=== PATIENT | male | born 1975 | race Caucasian/White ===

== ENCOUNTER 2016-09-25 06:50 | Inpatient (IN) ==
--- NOTE | 2016-09-24 20:04 | Discharge Summary ---
<Ilsa Whaley - Last Filed: 09/25/16 09:28> Date of Encounter: 09/25/16 - Discharge Diagnosis (1) Loosening of knee joint prosthesis Priority: Primary Status: Acute Qualifiers: Encounter type: subsequent encounter Qualified Code(s): T84.038D - Mechanical loosening of other internal prosthetic joint, subsequent encounter; Z96.659 - Presence of unspecified artificial knee joint (2) Chronic pain Priority: Secondary Status: Chronic Comments: Will continue chronic pain medication. Qualifiers: Chronic pain type: other chronic pain Qualified Code(s): G89.29 - Other chronic pain (3) Obesity Priority: Secondary Status: Chronic Qualifiers: Obesity type: unspecified obesity type Obesity severity: unspecified obesity severity Qualified Code(s): E66.9 - Obesity, unspecified - Discharge Medications Home Medications: Aspirin Enteric Coated [Aspirin EC] 325 mg PO DAILY #21 tablet. 09/24/16 [Rx] Acetaminophen [Tylenol] 650 mg PO Q6HR 09/25/16 [History] Ibuprofen [Motrin] 600 mg PO Q8H #30 tablet 09/25/16 [Rx] Oxymorphone HCl [Oxymorphone HCl ER] 10 mg PO BID 09/25/16 [History] Allergies/Adverse Reactions: Allergies clarithromycin [From Biaxin] Adverse Reaction (Verified 09/25/16 07:07) Vomiting nabumetone Adverse Reaction (Verified 09/25/16 07:07) Vomiting naproxen Adverse Reaction (Verified 09/25/16 07:07) Vomiting Primary care physician: Radha Blank - Patient Status Disposition: Home, Self-Care Condition: Good - Discharge Instructions Follow Up With: Ilsa Wise DO [Primary Care Provider] - - Hospital Course Hospital course: Mr. Castaneda is a 41 year old male - Time Spent with Patient Total time spent providing and/or coordinating discharge services: <Darien Mcwilliams - Last Filed: 09/26/16 06:28> Date of Encounter: 09/26/16 Time of Encounter: 06:28 - Discharge Diagnosis (1) Loosening of knee joint prosthesis Priority: Primary Status: Acute Qualifiers: Encounter type: subsequent encounter Qualified Code(s): T84.038D - Mechanical loosening of other internal prosthetic joint, subsequent encounter; Z96.659 - Presence of unspecified artificial knee joint (2) Chronic pain Priority: Secondary Status: Chronic Qualifiers: Chronic pain type: other chronic pain Qualified Code(s): G89.29 - Other chronic pain (3) Obesity Priority: Secondary Status: Chronic Qualifiers: Obesity type: unspecified obesity type Obesity severity: unspecified obesity severity Qualified Code(s): E66.9 - Obesity, unspecified Primary care physician: Radha Blank - Patient Status Functional capacity at discharge: uses cane/walker Overall status at discharge: patient is progressing back to baseline - Hospital Course Hospital course: Mr. Castaneda is a 41 year old male The patient had an uneventful postoperative course. They received antibiotics and physical therapy and were discharged in stable condition. There will follow -up in the office in 2 weeks. Aspirin DVT prophylaxis - Time Spent with Patient Total time spent providing and/or coordinating discharge services:
--- NOTE | 2016-09-25 06:43 | History & Physical Report ---
Date of Encounter: 09/25/16 Time of Encounter: 06:43 24 Hour HP Update - Instructions Instructions: If the History and Physical is less than 30 days old and was completed prior to A.M. admission and or procedure and has NOT been updated on calendar day of procedure please complete this update prior to performing procedure. - Update Patient reports changes in Medical Condition: No Changes in examination, assessment, or condition: No Changes in Medication: No Preop tests/diagnostics Reviewed: Yes Surgery Remains Indicated: Yes Consent for Planned Operative Procedure(s) Verified: Yes - Pre-Operative Checklist Preoperative Checklist Indicated: No Prophylactic Antibiotic Ordered: Yes Is VTE Prophylaxis Indicated?: Yes
[2016-09-25] MEDS ORDERED: CeFAZolin Pre 3,000 MG/100 ML 3,000 MG/100 ML BAG IVPB ONE (07:08)
[2016-09-25] MEDS ORDERED: Ringers Solution, Lactated 1,000 ML IVC SCH (07:15)
[2016-09-25] MEDS ORDERED: Gabapentin 300 MG CAPSULE PO ONE (07:22)
[2016-09-25] MEDS ORDERED: Famotidine 20 MG/2 ML VIAL IVP ONE (07:22)
--- NOTE | 2016-09-25 07:25 | Anesthesia Evaluation PreOp ---
Date of Encounter: 09/25/16 Time of Encounter: 07:25 - Past History Planned Operation: Revision Rt TKA Cardiac History: Denies any Significant Hx Pulmonary History: Denies Any Significant HX CLIENT HR MANAGER History: Denies Any Significant HX Other Medical History: Other (Morbid Obesity) Anesthesia History: No Prior Anesthetic Complications, Past Anesthesia (Rt TKA) Alcohol Use: none Drug use: none Medications and Allergies Aspirin Enteric Coated [Aspirin EC] 325 mg PO DAILY #21 tablet. 09/24/16 [Rx] Acetaminophen [Tylenol] 650 mg PO Q6HR 09/25/16 [History] Ibuprofen [Motrin] 200 - 400 mg PO Q6HR 09/25/16 [History] Oxymorphone HCl [Oxymorphone HCl ER] 10 mg PO BID 09/25/16 [History] Allergies clarithromycin [From Biaxin] Adverse Reaction (Verified 09/25/16 07:07) Vomiting nabumetone Adverse Reaction (Verified 09/25/16 07:07) Vomiting naproxen Adverse Reaction (Verified 09/25/16 07:07) Vomiting - Meds/Allergy Pre-op Review Medications Reviewed: Yes Allergies Reviewed: Yes Beta Blockers on Current Med List: No Anesthesia Results - Labs Laboratory Tests 09/13/16 09/13/16 15:35 15:35 Hgb 14.4 Hct 43.6 Plt Count 283 Sodium 144 Potassium 4.7 H BUN 15 Creatinine 1.00 Anesthesia Exam O2 Sat Height 1.75 m Height 1.75 m Weight 134.717 kg Weight 134.717 kg O2 Sat by Pulse Oximetry 98 Vital Signs Temp Pulse Resp BP Pulse Ox 97.7 F 79 18 145/96 98 09/25/16 07:14 09/25/16 07:14 09/25/16 07:14 09/25/16 07:14 09/25/16 07:14 - HEENT Pupil (Motor): Pupils equal Mallampati: III Teeth: Missing, Poor dentition Oral Opening: Less than or equal to 3 - CLIENT HR MANAGER LOC: Oriented CLIENT HR MANAGER Motor: Normal RUE, Normal LUE, Normal RLE, Normal LLE, Normal Face CLIENT HR MANAGER Sensory: Normal: RUE, LUE, RLE, LLE, Face - Cardiac Rhythm: Regular Murmur: None JVD: No Carotid Bruit: No - Pulmonary Breath Sounds: bilateral Clear Respiratory Effort: Symmetrical Anesthesia Assess/Plan ASA Score: 3 (MO) Modified Dallas Scale for Level of Consciousness: Cooperative, oriented, and tranquil Anesthetic Plan: General Monitoring Plan: Standard Monitors Recovery Plan: PACU (Discussed GA and RA, agrees to proceed)
[2016-09-25] MEDS ORDERED: Tetracaine/PF 20 MG/2 ML AMPUL ONE (07:50)
--- NOTE | 2016-09-25 08:14 | Anesthesia Procedures ---
Date of Encounter: 09/25/16 Time of Encounter: 08:12 Procedures: Anesthesia - Nerve Block Procedure Date: 09/25/16 Time: 08:12 Allergies/Adv Reactions: clarithromycin, nabumetone, naproxen Pre-op Diagnosis: unstable R total knee Surgical Procedure: R TKA, Revision Checklist: Correct Patient Identifier, Correct procedure, History checked Correct side: Right Blood Thinner: No Monitor Applied: EKG, BP, Pulse Oximetry Supplemental Oxygen via Nasal Cannula (L/min): 3 Sedation: Versed (mg): 4 Sedation: Fentanyl (mcg): 50 Indication: Post Op Analgesia (requested by Dr. Mcwilliams) Pre-op Neuro Deficits: Yes Block Type: Femoral, Other (iPACK) Catheter placed: No Sterile Technique: Yes Ultrasound used: Yes Anatomy identified: Yes Visual spread of Local: Yes Neuro Stimulation: Yes Nerve Stimulator Range: 0.2 - 0.4 mA Blood on Needle Aspiration: No Smooth Injection of Local: Yes Pain with Injection of Local: No Prep: Chlorhexadine Needle: 22 x 50 mm Stimuplex (femoral n. block), 21 x 100 mm Stimuplex (iPACK block) Local: 0.25% Bupivicaine w/Clonidine 20 mcg/cc (20mL for iPACK), Tetracaine ( 2mL 1% for femoral n. block), Other (0.5% bupivicaine, 30mL for femoral n. block ) Number of Attempts: 1 Complications: None/effective block Vitals: 3 Vital Signs Time pre-procedure post-procedure BP 128/86 126/97 Pulse 80 85 Resp 16 18 O2 Sat 99 99
[2016-09-25] MEDS ORDERED: *HR* Promethazine 25 MG/ML VIAL IVP PRN (08:16)
[2016-09-25] MEDS ORDERED: Ondansetron 4 MG/2 ML VIAL IVP PRN ×2 (08:16→11:59)
[2016-09-25] MEDS ORDERED: *HR* Succinylcholine 200 MG/10 ML VIAL IVP ONE (09:20)
[2016-09-25] MEDS ORDERED: *HR* Midazolam HCl 2 MG/2 ML VIAL ONE ×2 (09:20→11:29)
[2016-09-25] MEDS ORDERED: *HR* Propofol 200 MG/20 ML VIAL IVP ONE ×2 (09:20)
[2016-09-25] MEDS ORDERED: *HR* FentaNYL (PF) 100 MCG/2 ML VIAL ONE (09:20)
[2016-09-25] MEDS ORDERED: Lidocaine -MPF 2% 2 ML VIAL ONE (09:20)
[2016-09-25] MEDS ORDERED: Lidocaine -MPF 4% 5 ML AMPUL ONE ×2 (09:20→11:30)
[2016-09-25] MEDS ORDERED: Ondansetron 4 MG/2 ML VIAL ONE (09:21)
[2016-09-25] MEDS ORDERED: Dexamethasone 4 MG/ML VIAL ONE (09:21)
--- NOTE | 2016-09-25 10:08 | Orthopedic Operative Note ---
Date of procedure: 09/25/16 Pre-op diagnosis: Aseptic loosening unstable right total knee Post-op diagnosis: same Procedure: Procedure: Right revision total knee Estimated blood loss: 400 mL Hardware: Metal and polyethylene replacement. Biomet SS K 65 left femur 14 x 120 stem, 5 mm distal medial 75 stem tibia, 14 x 80 stem. 18 constrained Melida, Exam Under anesthesia: Full extension and flexion to 90 degrees significant varus valgus instability Procedural Notes: Unstable total knee, aseptic loosening tibia. Operative procedure: The patient was brought to the operating room and placed on the operating room table. After general anesthesia was administered the operative knee was examined. Findings were noted in the exam under anesthesia. The operative extremity was prepped and draped in sterile surgical fashion. The patient received IV antibiotics prior to skin incision. A standard midline incision was made centered over the patella through the old incision. The incision was made through the skin and subcutaneous tissue. A medial parapatellar tendon approach was performed. Care was taken to preserve tissue along the medial aspect of the patella. And to protect the patella tendon. The deep MCL was released off the medial tibia. The infra patella fat pad was excised. Fluid was encountered this was normal joint fluid, Cultures were obtained and gram . The knee was brought into flexion the poly-was removed. The interface between the patient's femoral component and distal femur were disrupted with a osteotome and oscillating saw. Femoral component was removed removed without significant bone loss. Attention was then turned to the tibial component. The same technique was used to remove the tibial component by disrupting the interface between the patient's tibial component and the patients proximal tibia. The tibial component was loose, was removed without significant bone loss. The tibia was sized to a 75 it was reamed up to a 20y140. Trial had good fit and fixation. The femur was sized to a 65, was reamed up to a 14 x 120. The finishing guide was seated and the box cut was made. The trial had good fit and fixation with a 5 mm distal medial augment. Both trial components were seated and the 14 constrained Melida was seated and secured. The knee had full flexion and full extension with no instability. The trial components were removed. The knee sat for 2 minutes with a Betadine saline solution. It was irrigated out with 2 L of pulse irrigation. The components were assembled on the back table, the tibia cemented first followed by the femur. The 18 constrained liner was seated and secure. The knee was brought to full extension while the cement hardened. After the cement hardened the knee was irrigated out again. The extensor mechanism was closed with a running #2 Fiberwire suture and a running #2 PDS suture. The deep tissue was irrigated and closed deep with #1 PDS suture superficially with 0 PDS suture. The skin was closed with skin nona. The patient was placed in a sterile dressing and postoperative brace. They were extubated and transferred to recovery room in stable condition. Anesthesia: GETA Surgeon: Darien Mcwilliams Condition: stable Disposition: PACU
[2016-09-25] MEDS ORDERED: *HR* Morphine 10 MG/ML VIAL ONE (10:21)
[2016-09-25] MEDS: *HR* HYDROmorphone (PF) 1 MG/ML SYRINGE IVP PRN ×8 (10:45→11:30)
[2016-09-25 11:05] LABS: Hematocrit 43.3 % (37.5-50.1); Hemoglobin 14.1 g/dL (12.9-16.9)
[2016-09-25] MEDS ORDERED: *HR* Midazolam HCl 2 MG/2 ML VIAL IVP ONE (11:28)
[2016-09-25] MEDS ORDERED: Temazepam 15 MG CAPSULE PO PRN (11:59)
[2016-09-25] MEDS ORDERED: Sennosides 8.6 MG TABLET PO PRN (11:59)
[2016-09-25] MEDS ORDERED: *HR* OxyCODONE Immed Rel 5 MG TABLET PO PRN (11:59)
[2016-09-25] MEDS ORDERED: Naloxone 0.4 MG/ML INJ IVP PRN (11:59)
[2016-09-25] MEDS ORDERED: MOM Conc 10 ML UD.LIQ PO PRN (11:59)
[2016-09-25] MEDS: Ringers Solution, Lactated 1,000 ML IVC SCH ×2 (12:00→21:38)
--- NOTE | 2016-09-25 12:05 | Anesthesia Evaluation Post Op ---
Date of Encounter: 09/25/16 Time of Encounter: 11:50 - Vital Signs Vital Signs: Vital Signs/O2 Sat/Glucose, Most Current Temp Pulse Resp BP Pulse Ox 09/25/16 11:40 97.7 F 72 18 113/82 94 09/25/16 11:30 73 18 103/83 94 09/25/16 11:20 75 18 124/90 95 09/25/16 11:10 98 F 79 18 120/90 98 09/25/16 11:00 78 18 135/95 95 09/25/16 10:50 81 20 128/90 96 09/25/16 10:40 97.3 F L 88 20 116/83 99 09/25/16 08:42 80 16 129/89 100 09/25/16 08:29 75 16 117/92 100 09/25/16 08:22 77 16 119/91 100 09/25/16 08:06 91 16 126/97 100 - Lungs Lungs: Clear Ascult./Percussion - Airway Airway: Non-obstructed - Cardiovascular Regular Rate - Mental Status Mental Status: Alert & Oriented, Answers Appropriately - Pain Pain Scale: 4 - Nausea Vomiting Nausea Vomiting: Not Present - Hydration Hydration: Ice chips - Discharge PostOp Status: Transfer Patient to floor
--- NOTE | 2016-09-25 12:08 | Anesthesia Progress Note ---
Date of Encounter: 09/25/16 Time of Encounter: 11:40 Anesthesia Note - Note Note: 09/25/16 12:06 Performed Rescue Femoral Block inPACU. Under US 20cc 0.25% Bupivacaine and 2% Lido Injected to next to Femoral Nerve Patient tolerated procedure well
[2016-09-25] MEDS: *HR* OxyCODONE Immed Rel 5 MG TABLET PO PRN ×3 (14:21→22:41)
[2016-09-25] MEDS: ceFAZolin 3,000 MG in D5% in Water 100 ML IVPB SCH (17:42)
[2016-09-25] MEDS: *HR* Enoxaparin 30 MG/0.3 ML SYRINGE SQ SCH (17:44)
[2016-09-25] MEDS ORDERED: *HR* Enoxaparin 30 MG/0.3 ML SYRINGE SQ SCH (18:00)
[2016-09-25] MEDS: OXYMORPHONE HCL 10 MG PO SCH (21:33)
[2016-09-25] MEDS: Gabapentin 300 MG CAPSULE PO SCH (21:36)
[2016-09-26] MEDS: ceFAZolin 3,000 MG in D5% in Water 100 ML IVPB SCH (01:21)
[2016-09-26] MEDS: *HR* OxyCODONE Immed Rel 5 MG TABLET PO PRN ×3 (03:20→12:18)
[2016-09-26 05:00] LABS: Hematocrit 41.1 % (37.5-50.1); Hemoglobin 13.5 g/dL (12.9-16.9)
[2016-09-26 05:21] LABS: BUN/Creatinine Ratio 17 (6-26); Blood Urea Nitrogen 16 mg/dL (8-26); Calcium 9.2 mg/dL (8.6-10.8); Carbon Dioxide 28 mEq/L (19-29); Chloride 104 mEq/L (98-109); Glucose 134 mg/dL (70-99); Osmolality,Calculated 295 (280-300); Potassium 4.5 mEq/L (3.5-4.5); Sodium 141 mEq/L (136-145); eGFR For African Americans > 60 (> 60); eGFR For Non-African Americans > 60 (> 60)
[2016-09-26] MEDS ORDERED: *HR* Morphine Immed Rel 30 MG TABLET PO PRN (06:21)
--- NOTE | 2016-09-26 06:29 | Orthopedics Progress Note ---
Date of Encounter: 09/26/16 Time of Encounter: 06:29 - Assessment and Plan (1) Loosening of knee joint prosthesis Current Visit: Yes Status: Acute Qualifiers: Encounter type: subsequent encounter Qualified Code(s): T84.038D - Mechanical loosening of other internal prosthetic joint, subsequent encounter; Z96.659 - Presence of unspecified artificial knee joint (2) Chronic pain Current Visit: Yes Status: Chronic Qualifiers: Chronic pain type: other chronic pain Qualified Code(s): G89.29 - Other chronic pain (3) Obesity Current Visit: Yes Status: Chronic Qualifiers: Obesity type: unspecified obesity type Obesity severity: unspecified obesity severity Qualified Code(s): E66.9 - Obesity, unspecified Subjective Interval history: Patient was seen this morning doing well without complaints. Afebrile vital signs stable. Operative extremity: Neurovascularly intact Dressing clean dry and intact Calves nontender Assessment and plan: Continue with postoperative care Hematocrit 41 discharged today Objective Vital signs: Vital Signs Temp Pulse Resp BP Pulse Ox 09/26/16 03:08 98.3 F 87 15 113/82 100 09/25/16 22:58 99 F 107 17 104/64 98 09/25/16 21:42 97 09/25/16 18:44 99 F 89 15 119/74 97 09/25/16 15:00 98.1 F 104 16 117/85 98 09/25/16 14:00 98.4 F 86 16 138/87 100 09/25/16 13:00 98.6 F 84 16 126/84 98 09/25/16 12:30 98.9 F 74 16 114/81 98 09/25/16 12:00 98.7 F 71 16 118/82 98 09/25/16 11:40 97.7 F 72 18 113/82 94 09/25/16 11:30 73 18 103/83 94 09/25/16 11:20 75 18 124/90 95 09/25/16 11:10 98 F 79 18 120/90 98 09/25/16 11:00 78 18 135/95 95 09/25/16 10:50 81 20 128/90 96 09/25/16 10:40 97.3 F L 88 20 116/83 99 09/25/16 08:42 80 16 129/89 100 09/25/16 08:29 75 16 117/92 100 09/25/16 08:22 77 16 119/91 100 09/25/16 08:06 91 16 126/97 100 09/25/16 07:55 83 16 128/86 100 09/25/16 07:24 97.7 F 79 18 145/96 98 09/25/16 07:14 97.7 F 79 18 145/96 98 Intake and Output 09/25/16 09/25/16 09/26/16 15:59 23:59 07:59 Intake Total 100 / 100 990 / 990 525 / 525 Output Total 400 / 400 725 / 725 Balance -300 / -300 265 / 265 525 / 525 Intake: IV Fluids 100 / 100 750 / 750 525 / 525 Lactated Ringers 1,000 ML 650 / 650 425 / 425 @ 75 mls/hr IVC .[id number] [facility] Rx#:[id number] Ancef Premix 3,000 MG/100 100 / 100 ML 3,000 mg In 100 ml @ 200 mls/hr IVPB PREOP ONE Rx#:[id number] Ancef 3,000 MG In 100 / 100 100 / 100 Dextrose 5% 100 ML @ 200 mls/hr IVPB Q8HR [facility] Rx#: [id number] Oral 240 / 240 Output: Urine 725 / 725 Estimated Blood Loss 400 / 400 Other: Meal Dinner Percent of Meal Consumed 100% # Voids 1 - Labs CBC & BMP: 09/26/16 04:44 09/26/16 04:44 Labs: Abnormal lab results Glucose 134 mg/dL (70-99) H 09/26/16 04:44 - VTE Documentation of Mechanical Device: Venous foot pump, device Consult Discharge Plan - Plan Referrals: Ilsa Wise DO [Primary Care Provider] -
[2016-09-26] MEDS: *HR* Enoxaparin 30 MG/0.3 ML SYRINGE SQ SCH (06:32)
[2016-09-26] MEDS: OXYMORPHONE HCL 10 MG PO SCH (07:22)
[2016-09-26] MEDS: Gabapentin 300 MG CAPSULE PO SCH (07:33)
[2016-09-26] MEDS ORDERED: Ibuprofen 800 MG TABLET PO SCH (09:00)
[2016-09-26 10:57] VITALS: BP 129/89
== END 2016-09-26 12:45 | disposition home or self-care (01) | DRG 302 ==
LOC: SAMDAY 06:50 → 3NENU 11:49
PROVIDERS: ADMIT Orthopaedic Surgery; ATTEND Orthopaedic Surgery

== ENCOUNTER 2019-02-20 09:55 | Inpatient (IN) ==
[2019-02-20] MEDS ORDERED: *HR* OxyCODONE Immed Rel 5 MG TABLET PO ONE (10:11)
[2019-02-20] MEDS ORDERED: Acetaminophen IV 1,000 MG/100 ML INFUS..BTL IVPB ONE (10:11)
[2019-02-20] MEDS ORDERED: Pregabalin 75 MG CAPSULE PO ONE (10:11)
[2019-02-20] MEDS ORDERED: Ringers Solution, Lactated 1,000 ML IVC SCH ×2 (10:15→14:42)
[2019-02-20] MEDS ORDERED: *HR* Promethazine 25 MG/ML VIAL IVP PRN ×2 (10:22→14:42)
[2019-02-20] MEDS ORDERED: *HR* Meperidine 25 MG/ML SYRINGE IVP PRN (10:22)
[2019-02-20] MEDS ORDERED: Ondansetron 4 MG/2 ML VIAL IVP ONE (10:22)
[2019-02-20] MEDS ORDERED: ROPIVACAINE/PF/NS 0.25% 1 EACH SYRINGE INTRAART ONE (10:35)
[2019-02-20] MEDS ORDERED: Ondansetron 4 MG/2 ML VIAL ONE (10:41)
[2019-02-20] MEDS ORDERED: Lidocaine -MPF 2% 2 ML VIAL ONE (10:41)
[2019-02-20] MEDS ORDERED: *HR* Propofol 200 MG/20 ML VIAL IVP ONE (10:41)
[2019-02-20] MEDS ORDERED: Dexamethasone 4 MG/ML VIAL ONE (10:41)
[2019-02-20] MEDS ORDERED: Lidocaine HCL 4 ML Topical Solution (Laryng-O-Jet Kit Sterile Pak) TP ONE (10:41)
[2019-02-20] MEDS ORDERED: *HR* FentaNYL (PF) 100 MCG/2 ML VIAL ONE ×2 (10:43→11:44)
[2019-02-20] MEDS ORDERED: Ethanol\\Acetic Acid\\Na Ace\\Ben 1,000 ML IRRIG.SOLN IR ONE (10:49)
[2019-02-20] MEDS ORDERED: *HR* PHENYLEPHRINE 1,000 MCG/10 ML SYRINGE IVP ONE (11:54)
[2019-02-20] MEDS ORDERED: Total Joint Mixture (50 ml) IR ONE (12:15)
[2019-02-20] MEDS ORDERED: Tranexamic Acid 1,000 MG/10 ML VIAL ONE (12:21)
[2019-02-20] MEDS ORDERED: *HR* HYDROMORPHONE 2 MG/ML VIAL ONE ×2 (13:05→13:22)
[2019-02-20] MEDS: *HR* HYDROmorphone (PF) 1 MG/ML SYRINGE IVP PRN ×4 (13:42→14:14)
[2019-02-20 13:56] LABS: Hematocrit 43.9 % (37.5-50.1); Hemoglobin 13.8 g/dL (12.9-16.9)
[2019-02-20] MEDS ORDERED: MOM Conc 10 ML UD.LIQ PO PRN (14:42)
[2019-02-20] MEDS ORDERED: traMADol 50 MG TABLET PO PRN (14:42)
[2019-02-20] MEDS ORDERED: Sennosides 8.6 MG TABLET PO PRN (14:42)
[2019-02-20] MEDS ORDERED: Ibuprofen 200 MG TABLET PO PRN (14:42)
[2019-02-20] MEDS ORDERED: Naloxone 0.4 MG/ML INJ IVP PRN (14:42)
[2019-02-20] MEDS ORDERED: Ondansetron 4 MG/2 ML VIAL IVP PRN (14:42)
[2019-02-20] MEDS ORDERED: Temazepam 15 MG CAPSULE PO PRN (14:42)
[2019-02-20] MEDS ORDERED: NON-FORMULARY MEDICATION 1 EACH EACH (Testosterone Cypionate [Depo-Testosterone] 200 MG) IM SCH (14:42)
[2019-02-20] MEDS: *HR* OxyCODONE Immed Rel 5 MG TABLET PO PRN ×2 (15:32→23:06)
[2019-02-20] MEDS: Ascorbic Acid 500 MG TABLET PO SCH (17:39)
[2019-02-20] MEDS: HYDROcodone BIT/Homatropine 5 MG TABLET PO PRN (20:29)
[2019-02-20] MEDS: (Buprenorphine Hcl/Naloxone Hcl [Buprenorphin-Naloxon SL SCH (22:58)
[2019-02-21 04:23] LABS: Basophils % 0.3 %; Eosinophils % 0.1 %; Hematocrit 37.6 % (37.5-50.1); Immature Granulocytes % 0.4 % (0-4); Lymphocytes # 1.5 K/mcL (0.6-4.6); Lymphocytes % 10.3 %; Mean Corpuscular HGB Conc 32.4 g/dL (31.6-35.5); Mean Corpuscular Hemoglobin 27.2 pg (28.0-33.3); Mean Corpuscular Volume 83.9 fL (83.0-100.0); Mean Platelet Volume 9.4 fL (9.4-12.4); Monocytes # 1.1 K/mcL (0.0-1.3); Monocytes % 8.1 %; Neutrophils # 11.3 K/mcL (1.6-8.9); Platelet Count 311 K/mcL (140-400); Red Blood Count 4.48 M/mcL (4.19-5.50); Red Cell Distribution Width 14.7 % (11.5-14.5); Segmented Neutrophils % 80.8 %
[2019-02-21 04:24] LABS: Hemoglobin 12.2 g/dL (12.9-16.9)
[2019-02-21] MEDS: HYDROcodone BIT/Homatropine 5 MG TABLET PO PRN ×2 (04:26→11:03)
[2019-02-21 04:39] LABS: BUN/Creatinine Ratio 16 (6-26); Blood Urea Nitrogen 16 mg/dL (6-20); Calcium 8.9 mg/dL (8.6-10.3); Carbon Dioxide 30 mEq/L (23-29); Chloride 101 mEq/L (98-107); Glucose 126 mg/dL (70-105); Osmolality,Calculated 287 (280-300); Potassium 4.3 mEq/L (3.5-5.1); Sodium 137 mEq/L (136-145); eGFR For African Americans > 60 (> 60); eGFR For Non-African Americans > 60 (> 60)
[2019-02-21] MEDS: *HR* OxyCODONE Immed Rel 5 MG TABLET PO PRN ×2 (06:25→13:00)
[2019-02-21 07:11] VITALS: BP 131/76
[2019-02-21] MEDS: Ascorbic Acid 500 MG TABLET PO SCH (07:49)
[2019-02-21] MEDS ORDERED: *HR* Enoxaparin 30 MG/0.3 ML SYRINGE SQ SCH ×2 (08:00)
[2019-02-21] MEDS ORDERED: Multivit/Ca/Min/Fe/FA 1 TAB TABLET PO SCH (09:00)
[2019-02-21] MEDS: (Buprenorphine Hcl/Naloxone Hcl [Buprenorphin-Naloxon SL SCH (11:00)
== END 2019-02-21 13:50 | disposition home health service (06) | DRG 302 ==
LOC: SAMDAY 09:55 → 3NENU 15:34
PROVIDERS: ADMIT Orthopaedic Surgery; ATTEND Orthopaedic Surgery